=== PATIENT | female | born 1990 | race African-American/Black ===

== ENCOUNTER 2018-05-30 06:47 | Emergency (ER) | payer OTHER, MEDICAID ==
[~2018-05-30] VITALS: Ht 157.5 cm; Wt 67.6 kg
[2018-05-30] MEDS ORDERED: ALBUTEROL2.5 MG/31 INH (06:56)
[2018-05-30] MEDS ORDERED: VENTOLIN HFA 1818 GM INH (06:56)
[2018-05-30 07:17] LABS: ABSOLUTE EOSINOPHILS 0.4 thou/uL (0.0-0.7); ABSOLUTE LYMPHOCYTES 2.8 thou/uL (0.8-5.3); ABSOLUTE MONOCYTES 0.4 thou/uL (0.0-1.2); ABSOLUTE NEUTROPHILS 3.6 thou/uL (1.6-8.1); BASOPHILS 0.6 %; EOSINOPHILS 5.1 %; HEMATOCRIT 37.5 % (37.0-47.0); HEMOGLOBIN 12.1 gm/dL (12.0-15.0); LYMPHOCYTES 38.9 %; MCH 25.3 pg (26.0-34.0); MCHC 32.3 g/dL (28.0-37.0); MCV 78.3 fL (80.0-100.0); MONOCYTES 6.1 %; NUCLEATED RBCS 0 /100WBC; PLATELET COUNT* 255 thou/uL (150-400); POLYS 49.3 %; RDW-CV 15.8 % (10.5-14.5); WBC 7.3 thou/uL (4.0-11.0)
[2018-05-30 07:26] LABS: ALBUMIN 3.7 g/dL (3.4-5.0); CREATININE 0.9 mg/dL (0.6-1.3); POTASSIUM 3.2 mmol/L (3.5-5.1); TOTAL BILIRUBIN 0.3 mg/dL (<0.1-1.0); TOTAL PROTEIN 7.5 g/dL (6.4-8.2)
[2018-05-30] MEDS ORDERED: PREDNISONE50 MG PO (08:10)
[2018-05-30] MEDS ORDERED: IPRAT-ALBUT 0.5-3 ML INH (08:10)
[2018-05-30 08:27] VITALS: BP 113/55
== END 2018-05-30 08:28 | disposition home or self-care (01) ==
LOC: EDBD 06:47 → M.ERS 06:47
PROVIDERS: Personal Emergency Response Attendant
DX: J45.901 Unspecified asthma with (acute) exacerbation (principal)